=== PATIENT | female | born 1955 | race Caucasian/White ===

== ENCOUNTER → 2017-09-24 | Outpatient (CLI) | payer OTHER | LOC: RAD 10:06 | DX: R06.02 Shortness of breath (principal); J18.9 Pneumonia, unspecified organism ==

== ENCOUNTER → 2017-10-01 | Outpatient (CLI) | payer OTHER | LOC: CAT 10:30 | DX: J47.9 Bronchiectasis, uncomplicated (principal); R91.8 Other nonspecific abnormal finding of lung field ==

== ENCOUNTER → 2017-11-06 | Outpatient (CLI) | payer OTHER ==
--- NOTE | ~2017-11-06 | CNG ---
[facility] [place] [address] CYTO-NONGYN REPORT PROCEDURE Name: LILLI NEWTON Room #: REG [facility].#: [id number] Admission: 11/06/17 Date of : 55 Discharge: Report #: [id number] Path Case #: [id number] CYTOPATHOLOGY REPORT COLLECTION DATE: 11/06/2017 RECEIVED DATE: 11/06/2017 SUBMITTING PHYS: Dr. Edgard Nichols OTHER PHYS: Dr. Kobe Cagle CLINICAL HISTORY: SOA. SPECIMEN(S) RECEIVED: A.Bronchoalveolar lavage, RUL * * * * * * * * * * * * FINAL DIAGNOSIS: A. Bronchoalveolar lavage, RUL: - No malignant epithelial cells identified. - Bronchial epithelial cells, alveolar macrophages, and squamous epithelial cells present amongst acute and chronic inflammatory cells. PATHOLOGIST: Aylin Carter M.D. REPORT ELECTRONICALLY SIGNED BY: Aylin Carter M.D. DATE/TIME: 11/09/2017 13:59 * * * * * * * * * * * * GROSS PATHOLOGY: A. Bronchoalveolar lavage, RUL: The specimen is submitted unfixed, labeled "Lilli Newton". Received by the Cytology Department is 25 mL of cloudy fluid. One ThinPrep slide was prepared. (clt 11.06.2017) SALES AMBASSADOR(S): LORA Mcgraw([facility] INITIAL CPT CODE(S): A; 74091 Professional services performed by [facility] at [facility] [address], [place] [address] Technical services performed by [facility] at [address] [place] [address]., [address], [place] [address]. CC: Dr. Ju Wyatt [facility] [address] [place] [address], [facility] [address] [place], [place] [id number] [place] [address] [place] [address] CYTO-NONGYN REPORT PROCEDURE Name: LILLI NEWTON ANA Room #: [facility].#: [id number] Admission: 11/06/17 Date of : 55 Discharge: Report #: [id number] Path Case #: [id number] PHONE: [phone] DIRECTOR: Gurinder Godoy M.D. * * * END OF REPORT * * *
--- NOTE | ~2017-11-06 | O ---
[facility] [place] [address] OPERATIVE REPORT Name: LILLI NEWTON Room #: REG [facility]#: [id number] Admission: 11/06/17 Attend Phys: Edgard Nichols MD Discharge: Date of : 55 Report #: [id number] THIS REPORT FOR: //name// CC: Ju Nichols DATE OF SERVICE: 11/06/2017 CLINICAL HISTORY: A 62-year-old white female with history of dyspnea, cough, bronchiectasis. A bronchoscopy was performed. POSTOPERATIVE DIAGNOSES: Normal airways. DESCRIPTION OF PROCEDURE: Following obtained consent and risks and benefits been explained to the patient, which include infection, bleeding, pneumothorax, the procedure was performed in the endoscopy suite. The patient was given aerosolized 4% lidocaine to the upper airways. She also received 2% lidocaine to the upper airways along with 1% lidocaine in the airways. She was also given a total of 3 mg of Versed along with 50 mcg of fentanyl. A flexible fiberoptic bronchoscope was introduced to the left naris without difficulty. The epiglottis was normal. Vocal cords were normal. Trachea was normal, catherine was normal. Left main stem bronchus, left upper lobe and left lower lobe were normal. Right main stem bronchus, right upper lobe, right middle lobe and right lower lobe were normal. There was mild secretion seen at the proximal trachea, which appears to be very tinged yellow-white. Bronchoalveolar lavage was performed in the posterior and anterior segment of the right upper lobe. Two aliquots of 20 mL normal saline was used. Bronchial lavage was also performed in the superior segment of the lingula. Additional 2 aliquots of 20 mL saline was used. There was adequate return in the sputum cup. Overall, the patient tolerated the procedure well. Vital signs and saturation throughout the study were within normal range. No complications noted. The bronchoalveolar lavage specimen will be sent for microbiologic studies including cytology and cell count. [address] [address] OPERATIVE REPORT Name: LILLI NEWTON Room #: REG [facility]#: [id number] Admission: 11/06/17 Attend Phys: Edgard Nichols MD Discharge: Date of : 55 Report #: [id number] The patient to follow with Dr. Kobe Cagle in 1-2 weeks. <ELECTRONICALLY SIGNED> By: Edgard Nichols MD 11/09/17 1707 1814 1829 Edgard Nichols MD /nt
== END | disposition home or self-care (01) ==
LOC: CATH 08:17
DX: J98.09 Other diseases of bronchus, not elsewhere classified (principal)